=== PATIENT | female | born 1935 | race Caucasian/White ===

== ENCOUNTER 2023-10-07 19:36 | Inpatient (IN) | payer MEDICARE, SELFPAY ==
[2023-10-07] VITALS (11 sets, daily range): BP systolic 124–166; BP diastolic 63–99; PULSE 93–117; RESP 15–18; TEMP 37.5; O2SAT 91–100; BMI 19.5
--- NOTE | 2023-10-07 19:40 | CTR_ITS ---
PROCEDURE INFORMATION: Exam: CT Cervical Spine Without Contrast Exam date and time: 10/07/2023 8:15 PM Age: 88 years old Clinical indication: Injury or trauma; Fall; Blunt trauma TECHNIQUE: Imaging protocol: Computed tomography of the cervical spine without contrast. Radiation optimization: All CT scans at this facility use at least one of these dose optimization techniques: automated exposure control; mA and/or kV adjustment per patient size (includes targeted exams where dose is matched to clinical indication); or iterative reconstruction. COMPARISON: CT facial bones wo con* [id number] 10/07/2023 8:15 PM RADIATION DOSE METRICS: Total DLP (mGy-cm): 141.2 FINDINGS: Bones: No acute fractures or subluxations. 3 mm anterolisthesis of C7 on T1. Severe intervertebral disc space narrowing with endplate sclerosis of C3-C4, C4-C5, and C5-C6. Posterior disc osteophytes at the levels of C3-C4, C4-C5, and C5-C6 cause at least a mild degree of canal stenosis. Moderate bilateral facet arthropathy. The bones are osteopenic. The atlantooccipital joint is well aligned. Lungs: Lung apices are normal. Pleural spaces: Biapical pleural-parenchymal scarring. Soft tissues: Unremarkable. CT/CT cervical spin wo con* [id number] IMPRESSION: No acute fractures or subluxations. Severe cervical spondylosis as described above.
--- NOTE | 2023-10-07 19:40 | XRR_ITS ---
PROCEDURE INFORMATION: Exam: XR Right Shoulder Exam date and time: 10/07/2023 8:01 PM Age: 88 years old Clinical indication: Injury or trauma; Fall; Blunt trauma (contusions or hematomas); Shoulder; Right TECHNIQUE: Imaging protocol: Radiologic exam of the right shoulder. Views: 2 or more views. COMPARISON: No relevant prior studies available. FINDINGS: Bones/joints: Acute comminuted fracture of the distal diaphysis extending to the surgical neck with lateral displacement of the distal fracture fragment by approximately 1.5 cm. The glenohumeral and acromioclavicular joint appear well aligned. Soft tissues: Moderate soft tissue swelling. XR/XR shoulder RT min 2V* [id number] IMPRESSION: Acute comminuted fracture of the distal diaphysis extending to the surgical neck with lateral displacement of the distal fracture fragment by approximately 1.5 cm.
--- NOTE | 2023-10-07 19:40 | XRR_ITS ---
PROCEDURE INFORMATION: Exam: XR Right Wrist Exam date and time: 10/07/2023 8:01 PM Age: 88 years old Clinical indication: Injury or trauma; Fall; Blunt trauma (contusions or hematomas); Wrist; Right TECHNIQUE: Imaging protocol: Radiologic exam of the right wrist. Views: 3 or more views. COMPARISON: No relevant prior studies available. FINDINGS: Bones/joints: Acute comminuted fracture of the distal radius with mild posterior angulation of the distal fracture fragment. The bones are diffusely osteopenic. Moderate degenerative changes of the hand with joint space narrowing. Soft tissues: Soft tissue swelling of the wrist. XR/XR wrist RT min 3V* [id number] IMPRESSION: Acute comminuted fracture of the distal radius with mild posterior angulation of the distal fracture fragment.
--- NOTE | 2023-10-07 19:40 | CTR_ITS ---
PROCEDURE INFORMATION: Exam: CT Head Without Contrast Exam date and time: 10/07/2023 8:15 PM Age: 88 years old Clinical indication: Injury or trauma; Fall TECHNIQUE: Imaging protocol: Computed tomography of the head without contrast. Radiation optimization: All CT scans at this facility use at least one of these dose optimization techniques: automated exposure control; mA and/or kV adjustment per patient size (includes targeted exams where dose is matched to clinical indication); or iterative reconstruction. COMPARISON: CT facial bones wo con* [id number] 10/07/2023 8:15 PM RADIATION DOSE METRICS: Total DLP (mGy-cm): 141.2 FINDINGS: Brain: No hemorrhage. Unremarkable white matter. No mass effect. There is moderate diffuse heterogeneity of the white matter attenuation, consistent with chronic white matter ischemic changes. Cerebral ventricles: No ventriculomegaly. Paranasal sinuses: No fluid levels. Mucosal thickening of the alveolar process of the right maxillary sinus. Leftward deviation of the nasal septum. Mastoid air cells: Visualized mastoid air cells are well aerated. Bones: Comminuted fractures of the right maxillary sinus and orbital rim, further described on CT maxillofacial. Soft tissues: Subcutaneous emphysema and edema within right aspect of the face and sports teacher space. CT/CT head wo con* [id number] IMPRESSION: 1. No acute intracranial abnormality. 2. Comminuted fractures of the right maxillary sinus and orbital rim, further described on CT maxillofacial.
--- NOTE | 2023-10-07 19:41 | ED_ITS ---
HPI - Fall 2 General: Stated Complaint: FALL Time Seen by Provider: 10/07/23 19:36 Source: patient and EMS Mode of arrival: EMS Limitations: no limitations History of Present Illness: 88-year-old female states that she had f ell in the bathroom just prior to arrival. Patient is unsure if she tripped or passed out but she did hit her head has a small laceration to the right side of her head she has pain in her right shoulder she rates a 7 out of 10 with obvious deformity some slight right wrist pain as well. Has a mild headache denies any chest abdominal or lower extremity pain. Patient states she had some weakness low-grade fevers for the last 2 days Associated symptoms-after fall: Reports headache(s); Denies abdominal pain, chest pain or neck pain Review of Systems 2 Const: Reports: fever(s), chills and malaise; Denies: body aches or change in appetite ENMT: Denies: throat pain or dental pain Card: Denies: chest pain Resp: Denies: dyspnea GI: Denies: abdominal pain, nausea, vomiting or diarrhea Musc: Reports: extremity pain; Denies: neck pain or back pain Skin/Breast: Denies: rash Neuro: Reports: headache(s) PFSH ED 2 PFSH: Medical History HTN (hypertension) Physical Exam 2 Const: COMMON NORMALS: patient oriented x3 HENMT: COMMON NORMALS: normocephalic HEAD & SCALP: normocephalic OTHER: 1 cm laceration to right forehead Eye: COMMON NORMALS: Equal, round and reactive pupils present and EOMs intact bilaterally PUPIL: Yes Equal, round and reactive pupils present Neck/C-Spine: COMMON NORMALS: full ROM and supple Chest: COMMONS NORMALS: normal inspection of the chest Resp: COMMON NORMALS: normal respiratory effort, No retractions, No use of accessory muscles and clear to auscultation bilaterally AUSCULTATION: clear to auscultation bilaterally Cardio: COMMON NORMALS: regular rate, regular rhythm and No murmurs present (Cardio) RATE: regular rate RHYTHM: regular rhythm GI: COMMON NORMALS: Normal to inspection, nondistended, normoactive bowel sounds present, Soft to palpation, non-tender and no masses PALPATION: Yes Soft to palpation Extremity: NARRATIVE EXTREMITY EXAM: Tenderness obvious deformity to right proximal humerus distal pulses sensation intact Neuro: COMMON NORMALS: patient oriented x3, moves all extremities and no focal motor deficits Psych: COMMON NORMALS: mental status grossly normal, Normal thought process present and cooperative THOUGHT PROCESS: Normal thought process present Skin: COMMON NORMALS: no rashes or lesions noted and no wounds GENERAL SKIN EXAM: no rashes or lesions noted Procedures Laceration Laceration 1: Site: face Side (If applicable): right Size (cm): 1 Description: linear Depth: simple, single layer Pre-repair: irrigated extensively and deep structures intact Skin layer closed with: other (dermabond) Course 2 Vital Signs: Vital signs: Vital Signs Temperature 98.0 F 10/08/23 07:53 Pulse Rate 94 10/08/23 08:12 Respiratory Rate 18 10/08/23 09:12 Blood Pressure 111/55 10/08/23 07:53 Pulse Oximetry 95 10/08/23 08:12 Oxygen Delivery Me thod Room Air 10/08/23 08:12 MDM - Fall Medical Decision Making Patient presents after a fall she has a right humerus fracture along with facial fractures she is found to have a UTI as well spoke to the hospitalist will admit at this time I also spoke to surgery who is consulted. Medical Records I reviewed the patient's medical records. Lab Data I reviewed the patient's lab results. 10/08/23 03:30 10/08/23 03:30 Radiology Impressions Cervical Spine CT 10/07/23 19:40 IMPRESSION: No acute fractures or subluxations. Severe cervical spondylosis as described above. Head CT 10/07/23 19:40 IMPRESSION: 1. No acute intracranial abnormality. 2. Comminuted fractures of the right maxillary sinus and orbital rim, further described on CT maxillofacial. Shoulder X-Ray 10/07/23 19:40 IMPRESSION: Acute comminuted fracture of the distal diaphysis extending to the surgical neck with lateral displacement of the distal fracture fragment by approximately 1.5 cm. Wrist X-Ray 10/07/23 19:40 IMPRESSION: Acute comminuted fracture of the distal radius with mild posterior angulation of the distal fracture fragment. Face CT 10/07/23 19:46 IMPRESSION: 1. Acute comminuted fracture of the right zygomatic arch. 2. Minimally displaced comminuted fractures of the anterior and posterolateral aspect of the right maxillary sinus. The fracture line extends to the alveolar process/apical portion of a right maxillary tooth. Dental consultation is recommended if clinically indicated. 3. Small fracture of the lateral orbital wall. Small comminuted fracture of the posterior inferior orbital rim. No herniation of intraorbital fat or orbital muscles. Chest X-Ray 10/07/23 20:24 IMPRESSION: No acute pulmonary findings. No acute fractures. Chest CTA 10/07/23 21:41 IMPRESSION: 1. No pulmonary emboli. 2. Mild bronchial wall thickening. Mosaic ground-glass attenuation of the lung bases which may represent infectious/inflammatory etiology. 3. Cardiomegaly and severe coronary artery calcifications. Venous Duplex 10/07/23 21:41 IMPRESSION: No evidence of deep vein thrombosis. Laboratory Results WBC 14.16 10^3/uL (3.29-11.43) H 10/07/23 19:46 RBC 3.54 10^6/uL (3.85-5.65) L 10/07/23 19:46 Hgb 11.10 g/dL (11.27-16.99) L 10/07/23 19:46 Hct 34.2 % (36-47) L 10/07/23 19:46 MCV 96.6 fl (85-98) 10/07/23 19:46 MCH 31.4 pg (27-33) 10/07/23 19:46 MCHC 32.5 g/dL (30-55) 10/07/23 19:46 RDW 13.5 % (12.1-15.1) 10/07/23 19:46 Plt Count 365 10^3/cmm (157-399) 10/07/23 19:46 MPV 10.0 fL (7.4-10.4) 10/07/23 19:46 Neut % (Auto) 65.3 % 10/07/23 19:46 Lymph % (Auto) 24.7 % 10/07/23 19:46 Ramsey % (Auto) 7.2 % 10/07/23 19:46 Eos % (Auto) 0.7 % 10/07/23 19:46 Baso % (Auto) 0.8 % 10/07/23 19:46 Neut # (Auto) 9.24 10^3/uL (1.8-7.7) H 10/07/23 19:46 Lymph # (Auto) 3.5 10^3/uL (0.8-4.8) 10/07/23 19:46 Ramsey # (Auto) 1.0 10^3/uL (0.2-0.9) H 10/07/23 19:46 Eos # (Auto) 0.1 10^3/uL (0.0-0.8) 10/07/23 19:46 Baso # (Auto) 0.1 10^3/uL (0.0-0.1) 10/07/23 19:46 Nucleated RBC % (auto) 0 % 10/07/23 19:46 Nucleated RBCs # 0.0 /100WBC 10/07/23 19:46 D-Dimer 6.48 ug/mLFEU (0-0.59) H 10/07/23 19:46 Sodium 140 mmol/L (136-145) 10/07/23 19:46 Potassium 4.2 mmol/L (3.5-5.1) 10/07/23 19:46 Chloride 104 mmol/L (98-107) 10/07/23 19:46 Carbon Dioxide 23 mmol/L (22-29) 10/07/23 19:46 Anion Gap 17.2 (5-19) 10/07/23 19:46 BUN 19 mg/dL (8-23) 10/07/23 19:46 Creatinine 1.3 mg/dL (0.5-0.9) H 10/07/23 19:46 GFR Calculation Not Reportable 10/07/23 19:46 Glucose 180 mg/dL (65-115) H 10/07/23 19:46 Estimat Average Glucose 103 10/07/23 19:46 Hemoglobin A1c 5.2 % (4.0-6.0) 10/07/23 19:46 Calculated Osmolality 297 mOsm/kg (285-295) H 10/07/23 19:46 Calcium 8.5 mg/dL (8.5-10.5) 10/07/23 19:46 Troponin T Baseline 61 ng/L (0-10) H 10/07/23 19:46 Urine Color Yellow (Yellow) 10/07/23 20:45 Urine Appearance Cloudy (CLEAR) A 10/07/23 20:45 Urine pH 6 (5-7) 10/07/23 20:45 Ur Specific [place] 1.020 (1.005-1.030) 10/07/23 20:45 Urine Protein 1+ (Negative) H 10/07/23 20:45 Urine Glucose (UA) Norm (Normal) 10/07/23 20:45 Urine Ketones Negative (Negative) 10/07/23 20:45 Urine Blood 2+ (Negative) H 10/07/23 20:45 Urine Nitrate Positive (Negative) A 10/07/23 20:45 Urine Bilirubin Neg (Negative) 10/07/23 20:45 Urine Urobilinogen Neg mg/dL (Negative) 10/07/23 20:45 Ur Leukocyte Esterase Negative (Negative) 10/07/23 20:45 Urine RBC 5-10 /hpf (0-2) H 10/07/23 20:45 Urine WBC 5-10 /hpf (0-5) H 10/07/23 20:45 Ur Squamous Epith Cells 5-10 /hpf (0-5) H 10/07/23 20:45 Amorphous Sediment Not Reportable 10/07/23 20:45 Urine Bacteria 4+ /hpf (NONE) H 10/07/23 20:45 Urine Mucus 1+ /hpf 10/07/23 20:45 All radiology interpretation(s) finalized by discharge Discharge Plan Discharge Patient Disposition: Admitted As Inpatient Admit Provider: Radha Ray Clinical Impression: Fall, Fracture of right wrist, Closed right humeral fracture, Facial fracture, Acute cystitis Condition: Stable Discharge Diet: Advance as tolerated Discharge Activity: Resume usual activity Coding Level of Care Code ED Cardiology Associate for Liliana Waddell
--- NOTE | 2023-10-07 19:46 | CTR_ITS ---
PROCEDURE INFORMATION: Exam: CT Maxillofacial Without Contrast Exam date and time: 10/07/2023 8:15 PM Age: 88 years old Clinical indication: Injury or trauma; Fall; Blunt trauma (contusions or hematomas); Patient HX: Right forehead abrasion TECHNIQUE: Imaging protocol: Computed tomography of the face without contrast. Radiation optimization: All CT scans at this facility use at least one of these dose optimization techniques: automated exposure control; mA and/or kV adjustment per patient size (includes targeted exams where dose is matched to clinical indication); or iterative reconstruction. COMPARISON: CT cervical spin wo con* [id number] 10/07/2023 8:15 PM RADIATION DOSE METRICS: Total DLP (mGy-cm): 657 FINDINGS: Orbital cavities: Orbits are normal. Orbital hardware bilaterally. Paranasal sinuses: Mucosal thickening of the inferior right maxillary sinus and right sphenoid sinus. The other paranasal sinuses are well aerated. Leftward deviation of the nasal septum. Bones: Acute comminuted fracture of the right zygomatic arch. Minimally displaced comminuted fractures of the anterior and posterolateral aspect of the right maxillary sinus. The fracture line extends to the alveolar process/apical portion of a right maxillary tooth. Small fracture of the lateral orbital wall. Small comminuted fracture of the posterior inferior orbital rim. No herniation of intraorbital fat or orbital muscles. Soft tissues: Soft tissue swelling of the right aspect of the face with associated subcutaneous emphysema. CT/CT facial bones wo con* [id number] IMPRESSION: 1. Acute comminuted fracture of the right zygomatic arch. 2. Minimally displaced comminuted fractures of the anterior and posterolateral aspect of the right maxillary sinus. The fracture line extends to the alveolar process/apical portion of a right maxillary tooth. Dental consultation is recommended if clinically indicated. 3. Small fracture of the lateral orbital wall. Small comminuted fracture of the posterior inferior orbital rim. No herniation of intraorbital fat or orbital muscles.
[2023-10-07 19:52] LABS: Basophils # 0.1 10^3/uL (0.0-0.1); Basophils % 0.8 %; Eosinophils # 0.1 10^3/uL (0.0-0.8); Eosinophils % 0.7 %; Hematocrit 34.2 % (36-47); Lymphocytes # 3.5 10^3/uL (0.8-4.8); Lymphocytes % 24.7 %; Mean Corpuscular HGB Conc 32.5 g/dL (30-55); Mean Corpuscular Hemoglobin 31.4 pg (27-33); Mean Corpuscular Volume 96.6 fl (85-98); Monocytes % 7.2 %; Neutrophils # 9.24 10^3/uL (1.8-7.7); Neutrophils % 65.3 %; Nucleated Red Blood Cells % 0 %; Platelet Count 365 10^3/cmm (157-399); Red Blood Count 3.54 10^6/uL (3.85-5.65); Red Cell Distribution Width 13.5 % (12.1-15.1); White Blood Count 14.16 10^3/uL (3.29-11.43)
[2023-10-07] MEDS: acetaminophen 325 mg Tablet 650 MG PO (20:03)
[2023-10-07 20:09] LABS: Anion Gap 17.2 (5-19); Blood Urea Nitrogen 19 mg/dL (8-23); Calcium 8.5 mg/dL (8.5-10.5); Carbon Dioxide 23 mmol/L (22-29); Chloride 104 mmol/L (98-107); Creatinine Clr Calc Pharmacy 23.8045; Glucose 180 mg/dL (65-115); Osmolality Calculated 297 mOsm/kg (285-295); Potassium 4.2 mmol/L (3.5-5.1); Sodium 140 mmol/L (136-145)
--- NOTE | 2023-10-07 20:24 | XRR_ITS ---
PROCEDURE INFORMATION: Exam: XR Chest Exam date and time: 10/07/2023 8:29 PM Age: 88 years old Clinical indication: Injury or trauma; Fall; Blunt trauma (contusions or hematomas); Additional info: Cp TECHNIQUE: Imaging protocol: Radiologic exam of the chest. Views: 1 view. COMPARISON: CT cervical spin wo con* [id number] 10/07/2023 8:15 PM FINDINGS: Lungs: Unremarkable. No consolidation. Pleural spaces: Unremarkable. No pleural effusion. No pneumothorax. Heart/Mediastinum: Unremarkable. No cardiomegaly. Vasculature: Atherosclerotic calcifications. Bones/joints: Unremarkable. XR/XR chest 1V portable [id number] IMPRESSION: No acute pulmonary findings. No acute fractures.
--- NOTE | 2023-10-07 20:35 | ECG_ITS ---
[facility] Test Date: 2023-10-07 Pat Name: Darlin Liz Department: Room: Gender: Female Well Logger: : 1935 Requested By: Ted Gonzalez Order Number: [id number] Teodora MD: Donnell Shetty M.D. Measurements Intervals [place] Rate: 96 P: 99 SC: 225 QRS: -52 QRSD: 146 T: 113 QT: 373 QTc: 472 Interpretive Statements SINUS RHYTHM WITH FIRST DEGREE AV BLOCK LEFT AXIS DEVIATION [QRS AXIS < -30] LEFT BUNDLE BRANCH BLOCK [120+ ms QRS DURATION, 80+ ms Q/S IN V1/V2, 85+ ms R IN I/aVL/V5/V6] No previous ECG available for comparison Electronically Signed On 10-08-2023 6:50:18 CDT by Donnell Shetty M.D. [id number]
[2023-10-07 21:00] LABS: Add Urine Microscopic? YES; Bilirubin Urine Neg (Negative); Blood Urine 2+ (Negative); Glucose Urine UA Norm (Normal); Ketones Urine Negative (Negative); Leukocyte Esterase Urine Negative (Negative); Nitrate Urine Positive (Negative); Protein Urine 1+ (Negative); Urine Appearance Cloudy (CLEAR); Urine Color Yellow (Yellow); Urobilinogen Urine Neg (Negative); pH Urine 6 (5-7)
[2023-10-07 21:04] LABS: Add Urine Culture? Yes; Bacteria Urine 4+ /hpf; Mucus Urine 1+ /hpf
--- NOTE | 2023-10-07 21:08 | P.HP_ITS ---
Providers/Chief Complaint 2 Chief Complaint: FALL History of Present Illness Darlin Liz is a 88 year old female who is from [facility], visiting her son, arrived after a 4-hour drive to [place] around noon, patient was taking a shower in the motel when she passed out, she was held by her family, brought in for further workup in the ER. In the ER she has been diagnosed with multiple fractures, Dr. Raymundo consulted. Patient is denying chest pain, shortness of breath feeling dizzy. Patient is stating that she probably passed out she did not experience any prodromal symptoms. It has never happened before. She is not endorsing cramps in her legs. Patient is stating that she took a break in middle of her trip for lunch. She is hemodynamically stable, tachycardic and hypertensive No active pain Not endorsing signs of UTI. Abnormal UA noted. EKG showing sinus rhythm with left bundle branch block. I have requested troponin. Review of Systems 2 Const: Denies: fever(s) Eyes: Denies: change in vision ENMT: Denies: throat pain Card: Denies: chest pain Resp: Denies: dyspnea GI: Denies: abdominal pain Medications/Allergies Home Medications Medication Instructions Recorded Confirmed Last Taken Type hydrocodone 5 mg-acetaminophen 325 1 tab PO Q6H PRN pain #14 tabs 10/07/23 Unknown Rx mg tablet Allergies Allergy/AdvReac Type Severity Reaction Status Date / Time No Known Allergies Allergy Verified 10/07/23 19:44 PFSH Acute 2 PFSH: Medical History HTN (hypertension) Vitals/I&O/Wt Last Vital Signs Temp 99.5 F 10/07/23 19:37 Pulse 104 H 10/07/23 19:37 Resp 18 10/07/23 19:37 BP 166/99 10/07/23 19:37 Pulse Ox 97 10/07/23 19:37 O2 Del Method Room Air 10/07/23 19:37 Weight last 48 hrs Weight 49.895 kg Physical Exam 2 Narrative: Dehydrated Nonfocal neuroexam No signs of heart failure Pleasant cooperative tachycardic Hypertensive Currently on room air Right arm is covered with bandages No neurovascular compromise noted Patient is very pleasant cooperative S1, S2 tachycardia Abdomen soft No audible stridor or wheezing Data 10/07/23 19:46 10/07/23 19:46 A&P Assessment and plan (1) Acute cystitis: (2) Fracture of right wrist: Qualifiers: Encounter type: initial encounter Fracture type: closed Qualified Code(s): S62.101A - Fracture of unspecified carpal bone, right wrist, initial encounter for closed fracture (3) Closed right humeral fracture: (4) Fall: Qualifiers: Encounter type: initial encounter Qualified Code(s): W19.XXXA - Unspecified fall, initial encounter (5) Facial fracture: Plan Syncope Multiple fractures Abnormal UA Start antibiotics Start gentle fluid hydration Rule out DVT and PE requested D-dimer She also have KUNAL creatinine 1.3 hold nephrotoxic agents Since she will be on a bedrest secondary to recurrent falls and fracture I will request for Macdonald catheter placement PT in the morning Patient is stating that she is not looking forward to go to rehab because she is not from [place] Patient is stating that she has [employer] and Medicare She is full code Cardiac diet I will keep her n.p.o. after midnight in case there is plan for any surgical intervention the morning As per my discussion with the ER physician Dr. Raymundo has not recommended any surgery so far I will cover with heparin for DVT prophylaxis UTI: Continue ceftriaxone Patient carries history of hypertension, would use amlodipine and hydralazine Attestations 2 Medical Necessity Statement*: More than 2 midnights anticipated Diagnoses Acute cystitis N30.00 Fracture of right wrist S62.101A Encounter type: initial encounter Fracture type: closed Closed right humeral fracture S42.301A Fall W19.XXXA Encounter type: initial encounter Facial fracture S02.92XA
--- NOTE | 2023-10-07 21:28 | PC.NURSE ---
Spoke with pts granddaughter who lives about 1 hour away. she is attempting to contact her family here in [place] to come and be with the pt and her .
[2023-10-07 21:35] LABS: Troponin(5th) Baseline 61 ng/L (0-10)
[2023-10-07 21:39] LABS: D Dimer 6.48 ug/mLFEU (0-0.59)
[2023-10-07] MEDS: morphine 4 mg/mL SDV 1 mL IVP ×2 (21:39→22:27)
[2023-10-07] MEDS: ondansetron 2 mg/ML SDV 2 mL 4 MG IVP (21:40)
[2023-10-07] MEDS: cefTRIAXone 1,000 mg SDV 1000 MG IVP (21:40)
--- NOTE | 2023-10-07 21:41 | USR_ITS ---
PROCEDURE INFORMATION: Exam: US Duplex Lower Extremity Veins, Bilateral Exam date and time: 10/07/2023 10:35 PM Age: 88 years old Clinical indication: Other: Order says syncope TECHNIQUE: Imaging protocol: Real-time duplex ultrasound of the bilateral extremities with 2-D gilbert scale, color Doppler flow and spectral waveform analysis including responses to compression and other maneuvers (when performed) with image documentation. Complete exam focused on the lower extremity veins. COMPARISON: No relevant prior studies available. FINDINGS: Right deep veins: Unremarkable. The common femoral, femoral, proximal profunda femoral and popliteal veins are patent without thrombus. Normal Doppler waveforms. Normal compressibility and/or augmentation response. Left deep veins: Unremarkable. The common femoral, femoral, proximal profunda femoral and popliteal veins are patent without thrombus. Normal Doppler waveforms. Normal compressibility and/or augmentation response. Superficial veins: Greater saphenous veins at the saphenofemoral junctions are patent bilaterally without thrombus. Soft tissues: Unremarkable. US/CV venous duplex [facility] [id number] IMPRESSION: No evidence of deep vein thrombosis.
--- NOTE | 2023-10-07 21:41 | CTR_ITS ---
PROCEDURE INFORMATION: Exam: CTA Chest With Contrast Exam date and time: 10/07/2023 9:52 PM Age: 88 years old Clinical indication: Other: Syncope; Patient HX: Got out of shower and passed out TECHNIQUE: Imaging protocol: Computed tomographic angiography of the chest with contrast. Exam focused on the arteries. 3D rendering (Not supervised by radiologist): MIP and/or 3D reconstructed images were created by the technologist. Radiation optimization: All CT scans at this facility use at least one of these dose optimization techniques: automated exposure control; mA and/or kV adjustment per patient size (includes targeted exams where dose is matched to clinical indication); or iterative reconstruction. Contrast material: OMNI 350; Contrast volume: 65 ml; Contrast route: INTRAVENOUS (IV); COMPARISON: CR (CHEST, ) 10/07/2023 8:29 PM RADIATION DOSE METRICS: Total DLP (mGy-cm): 231.55 FINDINGS: Pulmonary arteries: Normal. No pulmonary emboli. Aorta: Unremarkable. No aortic aneurysm. No aortic dissection. Other arteries: Severe atherosclerotic calcifications. Thyroid: Thyroid is unremarkable. Trachea: Central airways are patent. Mild bronchial wall thickening. Lungs: Mosaic ground-glass attenuation of the lung bases which may represent infectious/inflammatory etiology. Pleural spaces: Unremarkable. No pneumothorax. No pleural effusion. Heart: Cardiomegaly. Small pericardial effusion. Coronary arteries: Severe coronary artery calcifications. Lymph nodes: Unremarkable. No enlarged lymph nodes. Liver: Coarsened nodular hepatic contour compatible with cirrhosis. Bones/joints: Unremarkable. No acute fracture. Soft tissues: Unremarkable. CT/CT angio chest PE protcl [id number] IMPRESSION: 1. No pulmonary emboli. 2. Mild bronchial wall thickening. Mosaic ground-glass attenuation of the lung bases which may represent infectious/inflammatory etiology. 3. Cardiomegaly and severe coronary artery calcifications.
[2023-10-07] MEDS: iohexol 350 mg/mL 500 mL Btl (per mL) IV (21:54)
[2023-10-07 23:22] LABS: Troponin 5 2HR 249.5 ng/L (0-10); Troponin 5 2HR Delta 188.5 ABS# (0-10)
[2023-10-07 23:33] LABS: NT Pro B Type Natriuretic Pept 711 pg/mL (0-450)
[2023-10-07] MEDS: HYDROmorphone 1 mg/mL INJ 1 mL 0.5 MG IVP (23:45)
--- NOTE | 2023-10-07 23:45 | ECG_ITS ---
[facility] Test Date: 2023-10-08 Pat Name: Darlin Liz Department: Room: 103 Gender: Female Calibration Specialist: : [id number] Requested By: Radha Ray Order Number: [id number] Teodora MD: Todd Walker M.D. Measurements Intervals [place] Rate: 99 P: 88 WA: 217 QRS: -50 QRSD: 147 T: 124 QT: 369 QTc: 474 Interpretive Statements SINUS RHYTHM WITH FIRST DEGREE AV BLOCK LEFT AXIS DEVIATION [QRS AXIS < -30] LEFT BUNDLE BRANCH BLOCK [120+ ms QRS DURATION, 80+ ms Q/S IN V1/V2, 85+ ms R IN I/aVL/V5/V6] Compared to ECG 10/07/2023 20:35:46 No significant changes Electronically Signed On 10-09-2023 1:02:11 CDT by Todd Walker M.D. [id number]
[2023-10-08] VITALS (12 sets, daily range): BP systolic 96–124; BP diastolic 40–77; PULSE 84–103; RESP 14–23; TEMP 36.1–37.8; O2SAT 89–95
[2023-10-08 00:30] LABS: Estmated Average Glucose 103; Hemoglobin A1C 5.2 % (4.0-6.0)
[2023-10-08] MEDS: aspirin 325 mg EC Tablet PO (01:01)
[2023-10-08] MEDS: enoxaparin 60 mg/0.6 mL Syringe 50 MG SUBCUT ×2 (01:01→13:31)
--- NOTE | 2023-10-08 01:35 | PC.NURSE ---
patient is refusing to wear sling, this nurse educated patient on importance of having sling in place patient refused patient is also refusing to have a catheter placed stating is fine getting up to commode with assistance
[2023-10-08 02:28] LABS: Thyroid Stimulating Hormone 2.69 uIU/mL (0.27-4.20); Vitamin B12 737 pg/mL (232-1245)
[2023-10-08 03:40] LABS: Adenovirus Not Detected (NOT DETECT); Chlamydia Pneumoniae Not Detected (NOT DETECT); Coronavirus 229E,HKU1,NL63,OC4 Not Detected (NOT DETECT); Human Metapneumovirus Not Detected (NOT DETECT); Human Rhinovirus/Enterovirus Not Detected (NOT DETECT); Influenza A Not Detected (NOT DETECT); Influenza A H1 Not Detected (NOT DETECT); Influenza A H1-2009 Not Detected (NOT DETECT); Influenza A H3 Not Detected (NOT DETECT); Influenza B Not Detected (NOT DETECT); Mycoplasma Pneumoniae Not Detected (NOT DETECT); Parainfluenza Virus Type 1 Not Detected (NOT DETECT); Parainfluenza Virus Type 2 Not Detected (NOT DETECT); Parainfluenza Virus Type 3 Not Detected (NOT DETECT); Parainfluenza Virus Type 4 Not Detected (NOT DETECT); Respiratory Syncytial Virus A Not Detected (NOT DETECT); Respiratory Syncytial Virus B Not Detected (NOT DETECT); SARS-COV-2 Not Detected (NOT DETECT)
--- NOTE | 2023-10-08 03:45 | ECG_ITS ---
[facility] Test Date: 2023-10-08 Pat Name: Darlin Liz Department: Room: 103 Gender: Female Call Out Operator: : [id number] Requested By: Radha Ray Order Number: [id number] Teodora MD: Todd Walker M.D. Measurements Intervals [place] Rate: 92 P: 58 ID: [id number] QRS: -46 QRSD: 131 T: 153 QT: 401 QTc: 497 Interpretive Statements SINUS RHYTHM WITH FIRST DEGREE AV BLOCK LEFT AXIS DEVIATION [QRS AXIS < -30] LEFT BUNDLE BRANCH BLOCK [120+ ms QRS DURATION, 80+ ms Q/S IN V1/V2, 85+ ms R IN I/aVL/V5/V6] Compared to ECG 10/08/2023 00:11:04 No significant changes Electronically Signed On 10-09-2023 1:02:42 CDT by Todd Walker M.D. [id number]
[2023-10-08 04:15] LABS: Basophils # 0.1 10^3/uL (0.0-0.1); Basophils % 0.4 %; Hematocrit 31.8 % (36-47); Lymphocytes # 1.4 10^3/uL (0.8-4.8); Lymphocytes % 5.9 %; Mean Corpuscular HGB Conc 31.4 g/dL (30-55); Mean Corpuscular Hemoglobin 31.3 pg (27-33); Mean Corpuscular Volume 99.4 fl (85-98); Mean Platelet Volume 10.6 fL (7.4-10.4); Monocytes # 2.4 10^3/uL (0.2-0.9); Monocytes % 10.2 %; Neutrophils # 19.51 10^3/uL (1.8-7.7); Neutrophils % 82.3 %; Nucleated Red Blood Cells % 0 %; Platelet Count 396 10^3/cmm (157-399); Red Cell Distribution Width 13.8 % (12.1-15.1)
[2023-10-08 04:32] LABS: Blood Urea Nitrogen 21 mg/dL (8-23); Calcium 8.7 mg/dL (8.5-10.5); Carbon Dioxide 21 mmol/L (22-29); Chloride 107 mmol/L (98-107); Creatinine Clr Calc Pharmacy 20.1179; Glucose 220 mg/dL (65-115); Osmolality Calculated 304 mOsm/kg (285-295); Phosphorus 3.7 mg/dL (2.5-4.5); Sodium 142 mmol/L (136-145)
[2023-10-08 04:36] LABS: Troponin 5 6HR 368.6 ng/L (0-10); Troponin 5 6HR Delta 307.6 ng/L (0-12)
[2023-10-08 04:40] LABS: Anion Gap 18.6 (5-19); Potassium 4.6 mmol/L (3.5-5.1)
--- NOTE | 2023-10-08 08:18 | PM.CONSULT ---
Providers/Reason For Consult Consulting Physician/Specialty*: Hospitalist Reason for Consult*: Proximal humerus fracture as well as right distal radius fracture hospitalist Attending Physician: Tiara Bianchi MD History of Present Illness History of Present Illness Darlin Liz is a 88 year old female who is visiting from [facility] fell in the shower when she got here at the hotel sustained a proximal humerus fracture as well as a distal radius fracture. Review of Systems Const: Denies: fever(s) Eyes: Denies: change in vision ENMT: Denies: throat pain Card: Denies: chest pain Resp: Denies: dyspnea GI: Denies: abdominal pain Medications/Allergies Home Medications Medication Instructions Recorded Confirmed Last Taken Type hydrocodone 5 mg-acetaminophen 325 1 tab PO Q6H PRN pain #14 tabs 10/07/23 Unknown Rx mg tablet Allergies Allergy/AdvReac Type Severity Reaction Status Date / Time No Known Allergies Allergy Verified 10/07/23 19:44 Current Medications Generic Name Dose Route Start Last Admin Trade Name Freq PRN Reason Stop Dose Admin Enoxaparin Sodium 50 mg 10/08/23 00:15 10/08/23 01:01 Enoxaparin 60 Mg/0.6 Ml Syringe SUBCUT 50 mg Q24H SHADIA Administration PFSH Acute PFSH: Medical History HTN (hypertension) Vitals/I&O/Wt Last Vital Signs Temp 98.0 F 10/08/23 07:53 Pulse 94 10/08/23 08:12 Resp 20 H 10/08/23 08:12 BP 111/55 10/08/23 07:53 Pulse Ox 95 10/08/23 08:12 O2 Del Method Room Air 10/08/23 08:12 10/07/23 10/08/23 10/08/23 22:59 06:59 14:59 Output Total 200 / 200 Balance -200 / -200 Weight last 48 hrs Weight 121 lb 6 oz Weight 121 lb 6 oz Weight 110 lb Physical Exam Narrative: Patient is significant bruising about her right proximal humerus fracture. Patient also has large sugar-tong splint on. Is able to wiggle her fingers. Data 10/08/23 03:30 10/08/23 03:30 A&P Assessment and plan (1) Closed right humeral fracture: Treat nonoperatively in a sling. Qualifiers: Encounter type: initial encounter Humerus Location: proximal Fracture alignment: displaced Fracture morphology: other fracture Qualified Code(s): S42.291A - Other displaced fracture of upper end of right humerus, initial encounter for closed fracture (2) Distal radius fracture, right: Remove the sugar-tong splint and put in a distal radius brace. Patient is from [place] and will likely follow-up outpatient out there. No surgery at this point for the wrist or the proximal humerus on this visit. Qualifiers: Encounter type: initial encounter Fracture type: closed Fracture morphology: Colles' Qualified Code(s): S52.531A - Colles' fracture of right radius, initial encounter for closed fracture Coding Level of Care Code Acute Code for Chg Fwd Diagnoses Other closed displaced fracture of proximal end of right humerus, initial encounter S42.291A Encounter type: initial encounter Humerus Location: proximal Fracture alignment: displaced Fracture morphology: other fracture Closed Colles' fracture of right radius, initial encounter S52.531A Encounter type: initial encounter Fracture type: closed Fracture morphology: Colles'
[2023-10-08] MEDS: amlodipine 10 mg Tablet PO (08:21)
[2023-10-08] MEDS: acetaminophen 500 mg Tablet PO (08:21)
[2023-10-08] MEDS: sennosides-docusate Tablet 1 TAB PO (08:21)
[2023-10-08] MEDS: atorvastatin 40 mg Tablet 80 MG PO (08:21)
[2023-10-08] MEDS: aspirin 81 mg EC Tablet PO (08:21)
[2023-10-08] MEDS: morphine IR 15 mg Tablet PO (09:12)
--- NOTE | 2023-10-08 09:42 | PC.CHAP ---
Pastoral Care Encounter/Spiritual Assessment Type of Contact [] Declined office equipment technician visit [] Patient/Family/Request visit [] Outpatient visit [] Follow-up visit [] Physician referral [] Code/Alert [x] Routine visit [] Staff referral [] Actively dying [] Patient sleeping [] Family support [] [] Out of room [] Palliative care [] [] Receiving care in room [] Pre-surgical visit [] Trauma [] Long length of stay [] ICU visit [] Other: Relational/Emotional Strength [x] Patient feels connected with others/family/visitors/staff [] Distress [] Loneliness/isolation [] Abandonment Spirituality of Patient [x] Person of Mariza [] Attends Jain of their Mariza [x] Believes in Prayer [] Reads Bible or Yazidi materials [] There are Spiritual issues to be addressed [employer] Interventions [x] Prayer [x] Active listening [] Non-anxious presence [x] Spiritual/emotional support [] Crisis/trauma care [] Spiritual counseling [] Bereavement support [] Provided bereavement packet [] Provided Bible/devotional materials [] Provided toy/stuffed animal, coloring book to patient or family member [] Provided Communion [] Anointing/[place] [] Salvation [x] Completed spiritual assessment [] Other: Impact on Illness or Injury [] Angry [] Fearful [] Anxious [] Often cries [] Exhaustion [] Unable to work [] Unable to attend baptist [] Unable to walk/stand [] Unable to read [] Unable to drive [] Unable to eat/drink [] Unable to sleep [] Unable to be with family [] Patient intubated [] Other: Summary Time spent with patient 5 min
[2023-10-08] MEDS: ondansetron 2 mg/ML SDV 2 mL 4 MG IVP ×2 (12:41→16:33)
[2023-10-08] MEDS: HYDROmorphone 1 mg/mL INJ 1 mL 0.2 MG IVP (13:35)
--- NOTE | 2023-10-08 14:55 | P.TS_ITS ---
Transfer Summary Providers Date of Admission: 10/07/23 21:09 Date of Discharge/Transfer: 10/09/23 Attending Provider at Admission: Radha Ray MD Attending Provider at Transfer: Tiraa Bianchi MD Transfer Plans: Anticipated date of transfer: 10/09/23 . Receiving Facility: [facility] . Receiving Provider: Dr. Moss . Diagnoses at Discharge Discharge Diagnosis (1) Closed right humeral fracture: Status: Acute Qualifiers: Encounter type: initial encounter Fracture alignment: displaced Fracture morphology: other fracture Humerus Location: proximal Qualified Code(s): S42.291A - Other displaced fracture of upper end of right humerus, initial encounter for closed fracture (2) Distal radius fracture, right: Status: Acute Qualifiers: Encounter type: initial encounter Fracture morphology: Colles' Fracture type: closed Qualified Code(s): S52.531A - Colles' fracture of right radius, initial encounter for closed fracture (3) Fall: Status: Acute Qualifiers: Encounter type: initial encounter Qualified Code(s): W19.XXXA - Unspecified fall, initial encounter (4) Syncope and collapse: Status: Acute (5) NSTEMI (non-ST elevated myocardial infarction): Status: Acute Reason for Visit Reason for Visit FALL Hospital Course Hospital Course 88-year-old lady with a past medical history of hypertension, currently visiting relatives in the [place] area, presented to the emergency room last night with chief complaints of episode of syncope at her motel room. Reportedly patient was taking a shower when she developed sudden loss of consciousness. As a result of her fall she suffered right humerus and radial fractures. She was evaluated by orthopedics and recommended nonoperative conservative management with outpatient orthopedic follow-up. Her right arm is currently in a sling per Ortho recommendations. She denied any chest pain immediately preceding the episode, however her reports that she had complained of intermittent chest discomfort on exertion 2 to 3 months ago. Does not appear this was evaluated further at that time. EKG showed normal sinus rhythm, no acute ST-T wave changes. Baseline troponin at 61, trending up to 250 at 2 hours with a delta of 188 and then 368 at 6-hour with a delta of 307. CTA was negative for PE upon admission. Echocardiogram was taken which showed LV systolic function mildly reduced with a EF of 45 to 50%. There was septal wall motion abnormality consistent with conduction abnormality. No prior echocardiograms are available to compare. She has been on telemetry monitoring without any arrhythmias noted. With her episode of syncope,, wall motion abnormalities on echocardiogram and elevated troponins concern for NSTEMI. Patient is currently on Lovenox 1 mg/kg every 12 hours. She received aspirin 325 mg overnight, continuing aspirin 81 mg p.o. daily. Atorvastatin currently at 80 mg p.o. daily. Discussed with patient that the next step from here on would be to consult with her cardiology team for an angiogram. Patient declined getting any interventions here at [place]. She states that she would like to be transferred to [facility] in [facility] which is close to the area of residence. Patient does not think her would be able to manage living in a motel while she undergoes treatment here. Transfer was initiated per patient request. Her other injuries include acute comminuted fracture of the right zygomatic arch, minimally displaced comminuted fracture of the anterior and posterolateral aspect of the right maxillary sinus. Fracture line extending into the alveolar process/apical portion of the right maxillary tooth. Small fracture of the lateral orbital wall, small comminuted fracture of the posterior inferior orbital rim. No herniation of intraorbital fat or orbital muscles. Her vision is currently not compromised. Patient is able to swallow and talk normally. She is eating a pur?ed diet. Will need close outpatient ENT, ophthalmology and dental follow-ups for the above issues. Physical Exam Narrative: General: No acute distress, AO x3 HEENT: PERRLA, pupils bilaterally equal and reactive, pallors not present Chest: Normal vesicular breath sounds, no added sounds, equal good air entry bilaterally CVS: S1-S2 regular, no murmurs, no tachycardia, no gallops, no rubs Abdomen: Soft, nontender, no organomegaly, bowel sounds present Neuro: No focal deficits, no facial deformity, AO x3, power 5/5 in all limbs TS Data Studies Completed and Pending Pending at discharge Category Date Time Status Urine Culture Stat Lab 10/07/23 20:45 Received Completed Studies During Hospitalization Category Date Time Status CT cervical spin wo con* [id number] Stat Cat Scan 10/07/23 19:[address] facial bones wo con* [id number] Stat Cat Scan 10/07/23 19:[address] head wo con* [id number] Stat Cat Scan 10/07/23 19:40 Completed CTA PE [CT angio chest PE protcl [id number]] Stat Cat Scan 10/07/23 21:41 Completed CXRP [XR chest 1V portable [id number]] Stat Exams 10/07/23 20:24 Completed XR shoulder RT min 2V* [id number] Stat Exams 10/07/23 19:40 Completed XR wrist RT min 3V* [id number] Stat Exams 10/07/23 19:40 [place] [id number] Stat Ultrasound 10/07/23 21:41 Completed CV. echo complete* [id number] Routine Ultrasound 10/08/23 23:30 Completed Laboratory Last Values WBC 23.70 10^3/uL (3.29-11.43) H 10/08/23 03:30 RBC 3.20 10^6/uL (3.85-5.65) L 10/08/23 03:30 Hgb 10.00 g/dL (11.27-16.99) L 10/08/23 03:30 Hct 31.8 % (36-47) L 10/08/23 03:30 MCV 99.4 fl (85-98) H 10/08/23 03:30 MCH 31.3 pg (27-33) 10/08/23 03:30 MCHC 31.4 g/dL (30-55) 10/08/23 03:30 RDW 13.8 % (12.1-15.1) 10/08/23 03:30 Plt Count 396 10^3/cmm (157-399) 10/08/23 03:30 MPV 10.6 fL (7.4-10.4) H 10/08/23 03:30 Neut % (Auto) 82.3 % 10/08/23 03:30 Lymph % (Auto) 5.9 % 10/08/23 03:30 [place] % (Auto) 10.2 % 10/08/23 03:30 Eos % (Auto) 0.0 % 10/08/23 03:30 Baso % (Auto) 0.4 % 10/08/23 03:30 Neut # (Auto) 19.51 10^3/uL (1.8-7.7) H 10/08/23 03:30 Lymph # (Auto) 1.4 10^3/uL (0.8-4.8) 10/08/23 03:30 [place] # (Auto) 2.4 10^3/uL (0.2-0.9) H 10/08/23 03:30 Eos # (Auto) 0.0 10^3/uL (0.0-0.8) 10/08/23 03:30 Baso # (Auto) 0.1 10^3/uL (0.0-0.1) 10/08/23 03:30 Nucleated RBC % (auto) 0 % 10/08/23 03:30 Nucleated RBCs # 0.0 /100WBC 10/08/23 03:30 D-Dimer 6.48 ug/mLFEU (0-0.59) H 10/07/23 19:46 Sodium 142 mmol/L (136-145) 10/08/23 03:30 Potassium 4.6 mmol/L (3.5-5.1) 10/08/23 03:30 Chloride 107 mmol/L (98-107) 10/08/23 03:30 Carbon Dioxide 21 mmol/L (22-29) L 10/08/23 03:30 Anion Gap 18.6 (5-19) 10/08/23 03:30 BUN 21 mg/dL (8-23) 10/08/23 03:30 Creatinine 1.6 mg/dL (0.5-0.9) H 10/08/23 03:30 GFR Calculation Not Reportable 10/08/23 03:30 Glucose 220 mg/dL (65-115) H 10/08/23 03:30 Estimat Average Glucose 103 10/07/23 19:46 Hemoglobin A1c 5.2 % (4.0-6.0) 10/07/23 19:46 Calculated Osmolality 304 mOsm/kg (285-295) H 10/08/23 03:30 Calcium 8.7 mg/dL (8.5-10.5) 10/08/23 03:30 Phosphorus 3.7 mg/dL (2.5-4.5) 10/08/23 03:30 Magnesium 2.0 mg/dL (1.7-2.3) 10/08/23 03:30 Troponin T Baseline 61 ng/L (0-10) H 10/07/23 19:46 Troponin T 120 Minute 249.5 ng/L (0-10) H 10/07/23 22:10 Delta Troponin T 188.5 ABS# (0-10) H* 10/07/23 22:10 Troponin T Hi Sens 6Hr 368.6 ng/L (0-10) H 10/08/23 03:30 Troponin T Hi Sens 6Hr Delta 307.6 ng/L (0-12) H* 10/08/23 03:30 NT-Pro-B Natriuret Pep 711 pg/mL (0-450) H 10/07/23 22:10 Vitamin B12 737 pg/mL (232-1245) 10/07/23 22:10 TSH 2.69 uIU/mL (0.27-4.20) 10/07/23 22:10 Urine Color Yellow (Yellow) 10/07/23 20:45 Urine Appearance Cloudy (CLEAR) A 10/07/23 20:45 Urine pH 6 (5-7) 10/07/23 20:45 Ur Specific [place] 1.020 (1.005-1.030) 10/07/23 20:45 Urine Protein 1+ (Negative) H 10/07/23 20:45 Urine Glucose (UA) Norm (Normal) 10/07/23 20:45 Urine Ketones Negative (Negative) 10/07/23 20:45 Urine Blood 2+ (Negative) H 10/07/23 20:45 Urine Nitrate Positive (Negative) A 10/07/23 20:45 Urine Bilirubin Neg (Negative) 10/07/23 20:45 Urine Urobilinogen Neg mg/dL (Negative) 10/07/23 20:45 Ur Leukocyte Esterase Negative (Negative) 10/07/23 20:45 Urine RBC 5-10 /hpf (0-2) H 10/07/23 20:45 Urine WBC 5-10 /hpf (0-5) H 10/07/23 20:45 Ur Squamous Epith Cells 5-10 /hpf (0-5) H 10/07/23 20:45 Amorphous Sediment Not Reportable 10/07/23 20:45 Urine Bacteria 4+ /hpf (NONE) H 10/07/23 20:45 Urine Mucus 1+ /hpf 10/07/23 20:45 Adenovirus (PCR) Not detected (NOT DETECT) 10/08/23 01:33 C. pneumoniae DNA (PCR) Not detected (NOT DETECT) 10/08/23 01:33 Coronavirus 229E (PCR) Not detected (NOT DETECT) 10/08/23 01:33 Human Metapneumovir PCR Not detected (NOT DETECT) 10/08/23 01:33 Influenza A (H1) PCR Not detected (NOT DETECT) 10/08/23 01:33 Influ A (H1/09) PCR Not detected (NOT DETECT) 10/08/23 01:33 Influenza A (H3) PCR Not detected (NOT DETECT) 10/08/23 01:33 Influenza Type A (PCR) Not detected (NOT DETECT) 10/08/23 01:33 Influenza Type B (PCR) Not detected (NOT DETECT) 10/08/23 01:33 M. pneumoniae (PCR) Not detected (NOT DETECT) 10/08/23 01:33 Parainfluenza 1 (PCR) Not detected (NOT DETECT) 10/08/23 01:33 Parainfluenza 2 (PCR) Not detected (NOT DETECT) 10/08/23 01:33 Parainfluenza 3 (PCR) Not detected (NOT DETECT) 10/08/23 01:33 Parainfluenza 4 (PCR) Not detected (NOT DETECT) 10/08/23 01:33 RSV Type A (PCR) Not detected (NOT DETECT) 10/08/23 01:33 RSV Type B (PCR) Not detected (NOT DETECT) 10/08/23 01:33 Entero/Rhino (PCR) Not detected (NOT DETECT) 10/08/23 01:33 SARS-CoV-2 (PCR) Not detected (NOT DETECT) 10/08/23 01:33 Radiology Impressions Cervical Spine CT 10/07/23 19:40 IMPRESSION: No acute fractures or subluxations. Severe cervical spondylosis as described above. Head CT 10/07/23 19:40 IMPRESSION: 1. No acute intracranial abnormality. 2. Comminuted fractures of the right maxillary sinus and orbital rim, further described on CT maxillofacial. Shoulder X-Ray 10/07/23 19:40 IMPRESSION: Acute comminuted fracture of the distal diaphysis extending to the surgical neck with lateral displacement of the distal fracture fragment by approximately 1.5 cm. Wrist X-Ray 10/07/23 19:40 IMPRESSION: Acute comminuted fracture of the distal radius with mild posterior angulation of the distal fracture fragment. Face CT 10/07/23 19:46 IMPRESSION: 1. Acute comminuted fracture of the right zygomatic arch. 2. Minimally displaced comminuted fractures of the anterior and posterolateral aspect of the right maxillary sinus. The fracture line extends to the alveolar process/apical portion of a right maxillary tooth. Dental consultation is recommended if clinically indicated. 3. Small fracture of the lateral orbital wall. Small comminuted fracture of the posterior inferior orbital rim. No herniation of intraorbital fat or orbital muscles. Chest X-Ray 10/07/23 20:24 IMPRESSION: No acute pulmonary findings. No acute fractures. Chest CTA 10/07/23 21:41 IMPRESSION: 1. No pulmonary emboli. 2. Mild bronchial wall thickening. Mosaic ground-glass attenuation of the lung bases which may represent infectious/inflammatory etiology. 3. Cardiomegaly and severe coronary artery calcifications. Venous Duplex 10/07/23 21:41 IMPRESSION: No evidence of deep vein thrombosis. Recent Clincial Data Last Vital Signs Temp 96.9 F L 10/08/23 11:38 Pulse 88 10/08/23 11:38 Resp 20 H 10/08/23 13:35 BP 113/43 10/08/23 11:38 Pulse Ox 94 10/08/23 11:38 O2 Del Method Room Air 10/08/23 11:38 Vital Signs Temp Pulse Resp BP Pulse Ox O2 Del Method 10/08/23 13:35 20 H 10/08/23 11:38 96.9 F L 88 23 H 113/43 94 Room Air 10/08/23 09:12 18 10/08/23 08:12 94 20 H 95 Room Air 10/08/23 07:53 98.0 F 91 23 H 111/55 95 Room Air 10/08/23 06:14 84 10/08/23 03:49 99.4 F 92 16 124/51 92 Room Air Intake & Output/Weight 10/06/23 10/07/23 10/08/23 10/09/23 06:59 06:59 06:59 06:59 Intake Total 480 / 480 Output Total 200 / 200 Balance -200 / -200 480 / 480 Weight 55.055 kg Vitals Last Vital Signs Temp 96.9 F L 10/08/23 11:38 Pulse 88 10/08/23 11:38 Resp 20 H 10/08/23 13:35 BP 113/43 07/25/24 11:38 Pulse Ox 94 10/08/23 11:38 O2 Del Method Room Air 10/08/23 11:38 TS Medications Medications Acetaminophen (Acetaminophen 500 Mg Tablet) 500 mg PO Q4H PRN PRN Reason: fever Last Admin: 10/08/23 08:21 Dose: 500 mg Albuterol/Ipratropium (Ipratropium-Albuterol 3 Ml Neb) 3 ml INHALATION Q6H PRN PRN Reason: SHORTNESS OF BREATH Amlodipine Besylate (Amlodipine 10 Mg Tablet) 10 mg PO DAILY COUNTS INCLUDE 234 BEDS AT THE [facility] Last Admin: 10/08/23 08:21 Dose: 10 mg Aspirin (Aspirin 81 Mg Ec Tablet) 81 mg PO DAILY COUNTS INCLUDE 234 BEDS AT THE [facility] Last Admin: 10/08/23 08:21 Dose: 81 mg Atorvastatin Calcium (Atorvastatin 40 Mg Tablet) 80 mg PO DAILY COUNTS INCLUDE 234 BEDS AT THE [facility] Last Admin: 10/08/23 08:21 Dose: 80 mg Enoxaparin Sodium (Enoxaparin 60 Mg/0.6 Ml Syringe) 50 mg SUBCUT Q12H COUNTS INCLUDE 234 BEDS AT THE [facility] Last Admin: 10/08/23 13:31 Dose: 50 mg Hydralazine HCl (Hydralazine 20 Mg/Ml Inj 1 Ml) 5 mg IVP Q4H PRN PRN Reason: bp>180/90 Hydromorphone HCl (Hydromorphone 1 Mg/Ml Inj 1 Ml) 0.2 mg IVP Q4H PRN PRN Reason: SEVERE PAIN Last Admin: 10/08/23 13:35 Dose: 0.2 mg Ceftriaxone Sodium 1,000 mg/ (Sodium Chloride) 50 mls @ 100 mls/hr IV 2100 SHADIA; Protocol Morphine Sulfate (Morphine Ir 15 Mg Tablet) 15 mg PO Q6H PRN PRN Reason: MODERATE PAIN Last Admin: 10/08/23 09:12 Dose: 15 mg Ondansetron HCl (Ondansetron 2 Mg/Ml Sdv 2 Ml) 4 mg IVP Q6H PRN PRN Reason: NAUSEA AND VOMITING Last Admin: 10/08/23 12:41 Dose: 4 mg Senna/Docusate Sodium (Sennosides-Docusate Tablet) 1 tab PO DAILY COUNTS INCLUDE 234 BEDS AT THE [facility] Last Admin: 10/08/23 08:21 Dose: 1 tab Discontinued Medications Acetaminophen (Acetaminophen 325 Mg Tablet) 650 mg PO ONCE ONE Stop: 10/07/23 19:56 Last Admin: 10/07/23 20:03 Dose: 650 mg Aspirin (Aspirin 325 Mg Ec Tablet) 325 mg PO ONCE ONE Stop: 10/07/23 23:32 Last Admin: 10/08/23 01:01 Dose: 325 mg Ceftriaxone Sodium (Ceftriaxone 1,000 Mg Sdv) 1,000 mg IVP ONCE ONE; Protocol Stop: 10/07/23 21:08 Last Admin: 10/07/23 21:40 Dose: 1,000 mg Enoxaparin Sodium (Enoxaparin 60 Mg/0.6 Ml Syringe) 50 mg SUBCUT Q24H SHADIA Last Admin: 10/08/23 01:01 Dose: 50 mg Hydromorphone HCl (Hydromorphone 1 Mg/Ml Inj 1 Ml) 0.5 mg IVP ONCE ONE Stop: 10/07/23 23:28 Last Admin: 10/07/23 23:45 Dose: 0.5 mg Iohexol (Iohexol 350 Mg/Ml 500 Ml Btl (Per Ml)) 0 ml IV ONCE ONE Stop: 10/07/23 21:55 Last Admin: 10/07/23 21:54 Dose: 65 ml Morphine Sulfate (Morphine 4 Mg/Ml Sdv 1 Ml) 4 mg IVP ONCE ONE Stop: 10/07/23 20:49 Last Admin: 10/07/23 21:39 Dose: 4 mg Morphine Sulfate (Morphine 4 Mg/Ml Sdv 1 Ml) 4 mg IVP ONCE ONE Stop: 10/07/23 22:19 Last Admin: 10/07/23 22:27 Dose: 4 mg Ondansetron HCl (Ondansetron 2 Mg/Ml Sdv 2 Ml) 4 mg IVP ONCE ONE Stop: 10/07/23 20:49 Last Admin: 10/07/23 21:40 Dose: 4 mg Allergies No Known Allergies Allergy (Verified 10/07/23 19:44) Home Medications hydrocodone 5 mg-acetaminophen 325 mg tablet 1 tab PO Q6H PRN pain #14 tabs 10/07/23 [Rx] atorvastatin 10 mg tablet 10 mg PO BEDTIME 10/08/23 [History Confirmed 10/08/23] lisinopril 5 mg tablet 5 mg PO DAILY 10/08/23 [History Confirmed 10/08/23] methotrexate sodium 2.5 mg tablet 10 mg PO Q7D 10/08/23 [History Confirmed 10/08/23] Discharge Plan Discharge Patient Disposition: Xfer Other Condition: Stable Prescriptions: New hydrocodone-acetaminophen 5-325 mg tablet 1 tab PO Q6H PRN (Reason: pain) Qty: 14 0RF No Action atorvastatin 10 mg tablet 10 mg PO BEDTIME methotrexate sodium 2.5 mg tablet 10 mg PO Q7D lisinopril 5 mg tablet 5 mg PO DAILY Discharge Orders: Transfer Out of Facility (Order); Ordered 10/08/23 Ordered By: Tiara Bianchi Referrals: Qamar Raymundo DO [Physician] - 1-3 days Armani Teran MD [Physician] - 1-3 days Discharge Diet: Advance as tolerated Discharge Activity: Resume usual activity Patient Instructions: Arm Fracture in Adults (ED), Facial Fracture (ED), Wrist Fracture in Adults (ED), Opioid Safety Transfer Attestations Time Spent in Transfer Care: greater than 30 min Quality Metrics Clinical Quality Measures [ Acute Myocardial Infaction { Clinical Trial Participant: No; Contraindication to aspirin: None; Aspirin prescribed; Contraindication to statin: None; Statin prescribed;}] Coding Level of Care Code Acute Code for Chg Fwd Diagnoses Other closed displaced fracture of proximal end of right humerus, initial encounter S42.291A Encounter type: initial encounter Fracture alignment: displaced Fracture morphology: other fracture Humerus Location: proximal Closed Colles' fracture of right radius, initial encounter S52.531A Encounter type: initial encounter Fracture morphology: Colles' Fracture type: closed Fall W19.XXXA Encounter type: initial encounter Syncope and collapse R55 NSTEMI (non-ST elevated myocardial infarction) I21.4
--- NOTE | 2023-10-08 16:30 | PC.NURSE ---
Patient c/o nausea. Informed Dr Bianchi and received ok to give additional dose of zofran 4mg IVP at this time.
--- NOTE | 2023-10-08 18:35 | P.CONIM_ITS ---
Providers/Reason For Consult 2 Consulting Physician/Specialty*: Dr. Brianna Bianchi / Hospitalist Reason for Consult*: Right orbital fracture Attending Physician: Tiara Bianchi MD History of Present Illness History of Present Illness Darlin Liz is a 88 year old female presents after syncopal episode with trauma to right side of body and head. Review of Systems 2 Eyes: Reports: other (denies changes in vision, diplopia, pain with EOMs) Medications/Allergies Home Medications Medication Instructions Recorded Confirmed Last Taken Type hydrocodone 5 mg-acetaminophen 325 1 tab PO Q6H PRN pain #14 tabs 10/07/23 Unknown Rx mg tablet atorvastatin 10 mg tablet 10 mg PO BEDTIME 10/08/23 10/08/23 10/06/23 History lisinopril 5 mg tablet 5 mg PO DAILY 10/08/23 10/08/23 10/07/23 History methotrexate sodium 2.5 mg tablet 10 mg PO Q7D 10/08/23 10/08/23 Unknown History Allergies Allergy/AdvReac Type Severity Reaction Status Date / Time No Known Allergies Allergy Verified 10/07/23 19:44 Current Medications Generic Name Dose Route Start Last Admin Trade Name Freq PRN Reason Stop Dose Admin Acetaminophen 500 mg 10/07/23 23:30 10/08/23 08:21 Acetaminophen 500 Mg Tablet PO 500 mg Q4H PRN Administration fever Amlodipine Besylate 10 mg 10/08/23 09:00 10/08/23 08:21 Amlodipine 10 Mg Tablet PO 10 mg DAILY SHADIA Administration Aspirin 81 mg 10/08/23 09:00 10/08/23 08:21 Aspirin 81 Mg Ec Tablet PO 81 mg DAILY SHADIA Administration Atorvastatin Calcium 80 mg 10/08/23 09:00 10/08/23 08:21 Atorvastatin 40 Mg Tablet PO 80 mg DAILY SHADIA Administration Enoxaparin Sodium 50 mg 10/08/23 13:00 10/08/23 13:31 Enoxaparin 60 Mg/0.6 Ml Syringe SUBCUT 50 mg Q12H SHADIA Administration Hydromorphone HCl 0.2 mg 10/07/23 23:30 10/08/23 13:35 Hydromorphone 1 Mg/Ml Inj 1 Ml IVP 0.2 mg Q4H PRN Administration SEVERE PAIN Morphine Sulfate 15 mg 10/07/23 23:30 10/08/23 09:12 Morphine Ir 15 Mg Tablet PO 15 mg Q6H PRN Administration MODERATE PAIN Ondansetron HCl 4 mg 10/07/23 23:30 10/08/23 16:33 Ondansetron 2 Mg/Ml Sdv 2 Ml IVP 4 mg Q6H PRN Administration NAUSEA AND VOMITING Senna/Docusate Sodium 1 tab 10/08/23 09:00 10/08/23 08:21 Sennosides-Docusate Tablet PO 1 tab DAILY SHADIA Administration PFSH Acute 2 PFSH: Medical History HTN (hypertension) Vitals/I&O/Wt Last Vital Signs Temp 98.5 F 10/08/23 16:00 Pulse 103 H 10/08/23 16:00 Resp 21 H 10/08/23 16:00 BP 110/40 10/08/23 16:00 Pulse Ox 94 10/08/23 16:00 O2 Del Method Room Air 10/08/23 11:38 10/08/23 10/08/23 10/08/23 06:59 14:59 22:59 Intake Total 480 / 480 Output Total 200 / 200 Balance -200 / -200 480 / 480 Weight last 48 hrs Weight 121 lb 6 oz Weight 121 lb 6 oz Weight 110 lb Physical Exam 2 Eye: OTHER: EOMs full and conjugate, pupils 2mm to 1.5mm ERRL, periorbital ecchymosis right side, subconj heme OD. Clear corneas, AC deep and quiet, PCIOL in good position OU, normal fundus exam OU. Data 10/08/23 03:30 10/08/23 03:30 A&P Assessment and plan (1) Orbital wall fracture: Qualifiers: Encounter type: initial encounter Fracture type: closed Qualified Code(s): S02.85XA - Fracture of orbit, unspecified, initial encounter for closed fracture Plan ORBITAL FRACTURE, RIGHT SIDE: No gaze restrictions, no signs of optic neuropathy, retina flat 360 OU. Okay to follow-up outpatient with opthalmology in 4-6 weeks. Return precautions discussed. Cleared from our standpoint for transfer to hospital without ophthalmology coverage. INCIDENTAL FINDINGS: Posterior capsular opacity in the right eye. Patient would benefit from outpatient YAG to right eye. Coding Level of Care Code 14924 Diagnoses Closed fracture of orbital wall, initial encounter S02.85XA Encounter type: initial encounter Fracture type: closed Time Spent (min) 30
[2023-10-08] MEDS: cefTRIAXone 1,000 MG in sodium chloride 0.9% (plus) 50 ML 100 MG IV (20:18)
--- NOTE | 2023-10-08 23:30 | USCV_ITS ---
Darlin Liz Age: 88 Gender: F : 1935 Exam Date: 10/08/2023 00:23 Ordering Phys: Radha Ray MD Technologist: LITZY Exam Location: [facility] – [place] Indication: syncope and GLF. No history of cardiac intervention per patient. BP: 166 / 99 HR: 99 Rhythm: Atrial fibrillation Technical Quality: Adequate MEASUREMENTS (Male / Female) Normal Values 2D ECHO LV Diastolic Diameter PLAX 3.5 cm 4.2 - 5.9 / 3.9 - 5.3 cm IVS Diastolic Thickness 1.6 cm 0.6 - 1.0 / 0.6 - 0.9 cm IVS Systolic Thickness 1.2 cm LVPW Diastolic Thickness 1.5 cm 0.6 - 1.0 / 0.6 - 0.9 cm LVPW Systolic Thickness 1.8 cm LVOT Diameter 1.8 cm LV Ejection Fraction 2D Teich 54.2 % LV Ejection Fraction MOD 4C 71.2 % LV Ejection Fraction MOD 2C 49.3 % LV Ejection Fraction 2C AL 49.2 % LA Diameter 3.4 cm Aorta at Sinotubular Diameter 3.0 cm IVC Diameter 0.5 cm M-MODE LA Ao Ratio MM 1.0 AV Cusp Separation MM 1.9 cm DOPPLER AV Peak Velocity 111.0 cm/s LVOT Peak Velocity 110.0 cm/s AV Area Cont Eq vti 2.6 cm squared AV Area Cont Eq pk 2.5 cm squared MV Peak Velocity 135.0 cm/s MV Area PHT 5.3 cm squared Mitral E to A Ratio 0.0 TV Peak E Velocity 39.0 cm/s FINDINGS Left Ventricle Left ventricle is normal size. LV systolic function is mildly reduced with EF of 45-50%. Septal wall motion consistent with conduction abnormality. Right Ventricle Normal in size and function Right Atrium Normal in size Left Atrium Normal in size Mitral Valve Structurally normal mitral valve. Aortic Valve Aortic valve is thickened. No significant stenosis or regurgitation. Tricuspid Valve Insufficient TR jet to calculate RVSP Pulmonic Valve Mild pulmonic regurgitation. Pericardium Normal Aorta Normal in size IVC Appears to be normal CONCLUSIONS LV systolic function mild reduced with EF of 45-50%. Above mentioned regional wall motion abnormalities. Mild pulmonic regurgitation No comparison studies are available. Donnell Shetty MD (Electronically Signed) Final Date: 08 October 2023 07:02 S
[2023-10-09 03:36] VITALS: BP 104/42; PULSE 97; RESP 21; TEMP 37; O2SAT 95
[2023-10-09 07:26] VITALS: BP 107/46; PULSE 97; RESP 18; TEMP 37.3; O2SAT 91
--- NOTE | 2023-10-09 07:56 | PC.NURSE ---
Patient transferred to [facility] in [place], [place]. Patient taken by ambulance. Spouse will follow in private vehicle. Report called to Azra Robledo RN.
[2023-10-09 07:57] VITALS: BP 107/46; PULSE 97; RESP 18; TEMP 37.3; O2SAT 91
== END 2023-10-09 07:59 | disposition short-term general hospital (02) | DRG 562 ==
LOC: ER 21:47 → MEDSURG 21:59 → CSU 23:48
PROVIDERS: Admitting Provider Internal Medicine; Emergency Provider Emergency Medicine; Visit Provider Student in an Organized Health Care Education/Training Program
DX: S42.291A Other displaced fracture of upper end of right humerus, initial encounter for closed fracture (principal); I21.4 Non-ST elevation (NSTEMI) myocardial infarction; S52.531A Colles' fracture of right radius, initial encounter for closed fracture; S02.85XA Fracture of orbit, unspecified, initial encounter for closed fracture; S02.19XA Other fracture of base of skull, initial encounter for closed fracture; N30.00 Acute cystitis without hematuria; N17.9 Acute kidney failure, unspecified; W18.30XA Fall on same level, unspecified, initial encounter; R55 Syncope and collapse; I44.7 Left bundle-branch block, unspecified; I10 Essential (primary) hypertension; E86.0 Dehydration
CPT/HCPCS: 36415; 70450; 70486; 71045; 71275; 72125; 73030; 73110; 80048; 81001; 82607; 83036; 83735; 83880; 84100; 84443; 84484; 85025; 85378; 87077; 87086; 87186; 87486; 87581; 87633; 93005; 93306; 93970; 96372; 96374; 96375; 96376; 97110; 97167; 97535; 99253; 99285; J0696; J1170; J1650; J2270; J2405; L3908; Q9967